=== PATIENT | female | born 1955 | race African-American/Black ===

== ENCOUNTER 2023-07-11 10:44 | Observation (INO) | payer OTHER ==
[2023-07-11 10:53] VITALS: BMI 22.2
[2023-07-11 11:23] LABS: BASO % 0.4 % (0-2.0); EOS % 0.2 % (0-4.5); HEMATOCRIT 39.5 % (32.4-45.2); HEMOGLOBIN 13.4 GM/dL (10.7-15.3); LYMPH % 13.2 % (8-40); MCH 32.3 pg (25.7-33.7); MEAN PLT VOLUME 9.1 fl (7.5-11.1); MONO % 6.4 % (3.8-10.2); NEUT % 79.8 % (42.8-82.8); PLATELET COUNT 211 10^3/uL (134-434); RBC 4.15 M/mm3 (3.60-5.2); RDW 14.5 % (11.6-15.6); WHITE BLOOD COUNT 7.6 K/mm3 (4.0-10.0)
[2023-07-11 11:41] LABS: POTASSIUM 3.4 mmol/L (3.5-5.1)
[2023-07-11 11:43] LABS: CALCIUM 10.1 mg/dL (8.5-10.1)
[2023-07-11 11:45] LABS: ALBUMIN 3.9 g/dl (3.4-5.0); BLOOD UREA NITROGEN 15.1 mg/dL (7-18); MAGNESIUM 2.4 mg/dL (1.8-2.4)
[2023-07-11 11:47] LABS: CREATININE 0.8 mg/dL (0.55-1.3); PHOSPHOROUS 3.2 mg/dL (2.5-4.9)
[2023-07-11 11:48] LABS: BILIRUBIN,TOTAL 0.4 mg/dL (0.2-1)
[2023-07-11 13:50] LABS: URINE APPEARANCE CLEAR; URINE BILIRUBIN NEGATIVE (NEGATIVE); URINE COLOR YELLOW; URINE GLUCOSE (UA) NEGATIVE (NEGATIVE); URINE KETONE NEGATIVE (NEGATIVE); URINE LEUK ESTERASE NEGATIVE (NEGATIVE); URINE NITRITE NEGATIVE (NEGATIVE); URINE PROTEIN NEGATIVE (NEGATIVE); URINE UROBILINOGEN 0.2 mg/dL (0.2-1.0)
[2023-07-11] MEDS ORDERED: ACETAMINOPHEN 325 MG TABLET (FP) PO PRN (16:10)
[2023-07-11] MEDS ORDERED: amLODIPine BESYLATE 5 MG TABLET (FP) ONE (16:50)
[2023-07-11] MEDS ORDERED: POTASSIUM CHLORIDE ORAL LIQUID 20 MEQ/15 ML ONE (16:50)
[2023-07-11] MEDS: amLODIPine BESYLATE 5 MG TABLET (FP) PO SCH (16:54)
[2023-07-11] MEDS: POTASSIUM CHLORIDE ORAL LIQUID 20 MEQ/15 ML PO ONE ×2 (16:54→17:05)
[2023-07-11] MEDS: DEXTROSE 5%-0.45% SALINE 1,000 ML IV SCH (17:50)
[2023-07-11] MEDS: HEPARIN NA (PORCINE) 5,000 UNITS/ML 1ML VIAL SQ SCH (21:44)
[2023-07-12 05:34] VITALS: RESP 18
[2023-07-12 06:03] LABS: BASO % 0.5 % (0-2.0); EOS % 0.8 % (0-4.5); HEMATOCRIT 37.9 % (32.4-45.2); HEMOGLOBIN 12.5 GM/dL (10.7-15.3); LYMPH % 42.7 % (8-40); MCH 31.5 pg (25.7-33.7); MCHC 32.9 g/dl (32.0-36.0); MEAN CELL VOLUME 95.9 fl (80-96); MEAN PLT VOLUME 8.8 fl (7.5-11.1); MONO % 9.3 % (3.8-10.2); NEUT % 46.7 % (42.8-82.8); PLATELET COUNT 201 10^3/uL (134-434); RBC 3.96 M/mm3 (3.60-5.2); RDW 14.2 % (11.6-15.6); WHITE BLOOD COUNT 4.4 K/mm3 (4.0-10.0)
[2023-07-12 06:21] LABS: POTASSIUM 3.7 mmol/L (3.5-5.1)
[2023-07-12 06:24] LABS: CALCIUM 9.1 mg/dL (8.5-10.1)
[2023-07-12 06:25] LABS: BLOOD UREA NITROGEN 14.1 mg/dL (7-18)
[2023-07-12 06:26] LABS: ALBUMIN 3.4 g/dl (3.4-5.0)
[2023-07-12 06:28] LABS: CREATININE 0.8 mg/dL (0.55-1.3)
[2023-07-12 06:30] LABS: BILIRUBIN,TOTAL 0.4 mg/dL (0.2-1); TOT PROT 7.1 g/dl (6.4-8.2)
[2023-07-12 13:42] VITALS: BP 138/75; PULSE 95; TEMP 97.5
== END 2023-07-12 13:40 | disposition home or self-care (01) ==
LOC: JER 10:44 → JERBED 13:31 → J4S 20:19
PROVIDERS: ADMIT Internal Medicine; ATTEND Internal Medicine
PROC: 3E033GC Introduction of Other Therapeutic Substance into Peripheral Vein, Percutaneous Approach (ICD-10-PCS; principal; 2023-07-11)
PROC: 3E023GC Introduction of Other Therapeutic Substance into Muscle, Percutaneous Approach (ICD-10-PCS; 2023-07-11)
DX: R55 Syncope and collapse (principal); I10 Essential (primary) hypertension; E78.5 Hyperlipidemia, unspecified; Z86.73 Personal history of transient ischemic attack (TIA), and cerebral infarction without residual deficits; Z88.8 Allergy status to other drugs, medicaments and biological substances
CPT/HCPCS: 36415; 70450-TC; 71045-TC-FY; 80053; 81003; 82550; 82962; 83605; 83735; 84100; 84443; 84484; 85025; 87086; 93005; 93010; 95816; 96365; 96372; 99285-25; G0378; J1644